=== PATIENT | female | born 1960 | race Caucasian/White ===

== ENCOUNTER 2021-02-06 11:36 | Emergency (ER) | payer MEDICARE, OTHER ==
[~2021-02-06 11:36] MED LIST: CEFDINIR300 MG PO; CELEXA20 MG PO; CEPHALEXIN500 MG PO; DIFLUCAN 100MG100 MG PO; TOPROL XL 25MG25 MG PO; VICODIN 10/3251 EACH PO
[2021-02-06 12:29] LABS: BASOPHIL 1.1 % (0-2); EOSINOPHIL 2.1 % (0-5); HCT 38.7 % (37.0-47.0); LYMPHOCYTE 32.4 % (15-48); MCHC 33.6 g/dL (32.0-36.0); MCV 95.3 fL (78.0-100.0); MONOCYTE 11.2 % (0-12); MPV 9.8 fL (6.0-9.5); NEUTROPHIL 52.9 % (41-80); NRBC 0; PLT 322 K/uL (150-400); RBC 4.06 M/uL (4.20-5.40); RDW 13.2 % (11.5-14.0); WBC 6.2 K/uL (4.0-10.5)
[2021-02-06 13:12] LABS: BILIRUBIN NEGATIVE (NEGATIVE); BLOOD NEGATIVE Ery/uL (NEGATIVE); CLARITY CLEAR (CLEAR); COLOR YELLOW (YELLOW); GLUCOSE (U) NORMAL (NORMAL); LEUKOCYTES NEGATIVE Leu/uL (NEGATIVE); NITRITE NEGATIVE (NEGATIVE); PROTEIN NEGATIVE (NEGATIVE); UROBILINOGEN 0.2 mg/dL (0.2-1.0)
[2021-02-06 14:39] LABS: ALBUMIN 3.4 g/dL (3.4-5.0); BILIRUBIN - TOTAL 0.4 mg/dL (0.2-1.0); BUN/CREAT RATIO (CALC) 17.1 RATIO; CREATININE 0.82 mg/dL (0.51-0.95); GLOBULIN (CALCULATION) 3.9 g/dL; POTASSIUM 4.7 mmol/L (3.5-5.1); TOTAL PROTEIN 7.3 g/dL (6.4-8.2)
[2021-02-06] MEDS ORDERED: PREDNISONE 20MG20 MG PO (15:28)
[2021-02-06] MEDS ORDERED: CYCLOBENZAPRINE10 MG PO (15:28)
== END 2021-02-06 15:45 | disposition home or self-care (01) ==
LOC: FER 11:36
PROVIDERS: Emergency Medicine
DX: M54.31 Sciatica, right side (principal); I10 Essential (primary) hypertension
CPT/HCPCS: 36415; 80053; 81003; 85025; J1100; J1170; J2405